=== PATIENT | male | born 1995 | race American Indian/Alaskan Native ===

== ENCOUNTER 2020-06-27 18:51 | Emergency (ER) | payer SELFPAY ==
[2020-06-27] MEDS ORDERED: SODIUM CHLORIDE 0.9% 1000 ML 1,000 ML ONE (19:18)
[2020-06-27] MEDS ORDERED: SODIUM CHLORIDE 0.9% 1000 ML 1,000 ML IV ONE (19:20)
[2020-06-27 19:45] LABS: Bilirubin,Urine NEG (Negative); Blood,Urine NEG (Negative); Color,Urine Amber (Yellow); Mucus,Urine 3+ /HPF
[2020-06-27 19:50] LABS: Amphetamine Screen,Urine PRESUMPTIVE NEGATIVE; Benzodiazepines Screen,Urine PRESUMPTIVE NEGATIVE; Cannabinoid Screen,Urine PRESUMPTIVE POSITIVE; Cocaine Screen,Urine PRESUMPTIVE NEGATIVE; Methadone Screen,Urine PRESUMPTIVE NEGATIVE; Opiate Screen,Urine PRESUMPTIVE NEGATIVE
[2020-06-27 19:54] LABS: Protein,Urine >500 mg/dL (Negative)
[2020-06-27 20:01] LABS: Basophils % (Auto) 0.3 % (0.0-1.8); Eosinophils # (Auto) 0.1 K/mm3 (0.0-0.4); Eosinophils % (Auto) 0.6 % (0.0-4.3); Hematocrit 45.9 % (35.5-45.6); Hemoglobin 15.7 gm/dl (11.8-15.2); Lymphocytes # (Auto) 0.9 K/mm3 (1.2-5.4); Lymphocytes % (Auto) 9.5 % (13.4-35.0); Mean Corpuscular HGB Conc 34 % (32-34); Mean Corpuscular Volume 96 fl (84-94); Monocytes # (Auto) 0.6 K/mm3 (0.0-0.8); Monocytes % (Auto) 6.8 % (0.0-7.3); Platelet Count 149 K/mm3 (140-440); Red Blood Count 4.76 M/mm3 (3.65-5.03); Red Cell Distribution Width 13.4 % (13.2-15.2)
[2020-06-27 20:13] LABS: Alanine Aminotransferase 20 units/L (7-56); Albumin 4.3 g/dL (3.9-5); BUN/Creatinine Ratio 12; Blood Urea Nitrogen 12 mg/dL (9-20); Calcium 8.9 mg/dL (8.4-10.2); Hemolysis Index 22
--- NOTE | 2020-06-27 20:29 | XRay Report ---
CHEST 1 VIEW INDICATION: Palpatations COMPARISON: None FINDINGS: SUPPORT DEVICES: None. HEART / MEDIASTINUM: No significant abnormality. LUNGS / PLEURA: No significant pulmonary or pleural abnormality. No pneumothorax. ADDITIONAL FINDINGS: IMPRESSION: 1. No acute cardiopulmonary disease Signer Name: Seth Delgado MD Signed: 06/27/2020 8:25 PM Workstation Name: [id number]
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
[2020-06-27 21:36] VITALS: BP 154/100
== END 2020-06-27 21:36 | disposition home or self-care (01) ==
LOC: ED 18:51
DX: R00.0 Tachycardia, unspecified (principal); N39.0 Urinary tract infection, site not specified; F17.200 Nicotine dependence, unspecified, uncomplicated; F12.10 Cannabis abuse, uncomplicated; F14.10 Cocaine abuse, uncomplicated
CPT/HCPCS: 36415; 71045; 80053; 80307; 81001; 83735; 84439; 84443; 85025; 87086; 93005; 96360; 99284; J7030

== ENCOUNTER 2020-07-26 11:57 | Emergency (ER) | payer SELFPAY ==
[2020-07-26 12:07] VITALS: BP 146/98
--- NOTE | 2020-07-26 13:38 | Emergency Department Report ---
ED Back Pain/Injury HPI - General Chief Complaint: Back Pain/Injury Stated Complaint: BACK PAIN/COUGH/CANT SMELL/TASTE Time Seen by Provider: 07/26/20 13:32 Source: patient Limitations: No Limitations - Related Data Previous Rx's Medication Instructions Recorded Last Taken Type Sulfamethoxazole/Trimethoprim 1 each PO BID #14 tablet 06/27/20 Unknown Rx [Bactrim DS TAB] Allergies Allergy/AdvReac Type Severity Reaction Status Date / Time amoxicillin Allergy Unknown Verified 06/27/20 19:02 ED Review of Systems ROS: Stated complaint: BACK PAIN/COUGH/CANT SMELL/TASTE Other details as noted in HPI ED Past Medical Hx - Past Medical History Previous Medical History?: No - Surgical History Past Surgical History?: No - Social History Smoking Status: Never Smoker Substance Use Type: None - Medications Home Medications: Home Medications Medication Instructions Recorded Confirmed Last Taken Type Sulfamethoxazole/Trimethoprim 1 each PO BID #14 tablet 06/27/20 Unknown Rx [Bactrim DS TAB] ED Physical Exam - General Limitations: No Limitations ED Course Vital Signs 07/26/20 12:04 Temperature 98.1 F Pulse Rate 82 Respiratory 18 Rate Blood Pressure 146/98 O2 Sat by Pulse 97 Oximetry Critical care attestation.: If time is entered above; I have spent that time in minutes in the direct care of this critically ill patient, excluding procedure time. ED Disposition Condition: Stable Referrals: PRIMARY CARE, [Primary Care Provider] - 3-5 Days
--- NOTE | 2020-07-26 13:39 | Emergency Department Report ---
Chief Complaint: Back Pain/Injury Stated Complaint: BACK PAIN/COUGH/CANT SMELL/TASTE Time Seen by Provider: 07/26/20 13:32 - HPI History of Present Illness: 25-year-old -[place] male presents to the emergency room stating he has a runny nose and would like to be tested for Covid. Patient states that he has a friend that came over and tested positive for Covid. Patient denies any shortness of breath chest pain no nausea no vomiting no sore throat no diarrhea no headache. Patient denies any past medical history takes no medications on a daily basis and has allergy to amoxicillin. - Exam Vital Signs: Vital Signs 07/26/20 12:04 Temperature 98.1 F Pulse Rate 82 Respiratory 18 Rate Blood Pressure 146/98 O2 Sat by Pulse 97 Oximetry Physical Exam: Alert and oriented x3 no acute distress nontoxic in appearance Patient has nonlabored breathing ambulatory without difficulties or distress. MSE screening note: Focused history and physical exam performed. Due to findings the following was ordered: 25-year-old -[place] male presents to the emergency room stating he has a runny nose and would like to be tested for Covid. Patient states that he has a friend that came over and tested positive for Covid. Patient denies any shortness of breath chest pain no nausea no vomiting no sore throat no diarrhea no headache. Patient denies any past medical history takes no medications on a daily basis and has allergy to amoxicillin. [place] patient that he can go to one of the community resource areas where they are providing Covid testing. ED Disposition for MSE Disposition: MED SCREENING EXAM-LEFT Is pt being admited?: No Does the pt Need Aspirin: No Condition: Stable Additional Instructions: Handout given for Covid resources. Referrals: PRIMARY CARE, [Primary Care Provider] - 3-5 Days
== END 2020-07-26 13:40 | disposition left against medical advice (07) ==
LOC: ED 11:57
DX: M54.9 Dorsalgia, unspecified (principal); Z53.21 Procedure and treatment not carried out due to patient leaving prior to being seen by health care provider

== ENCOUNTER 2020-11-10 11:32 | Emergency (ER) | payer SELFPAY ==
[2020-11-10] MEDS ORDERED: NEOMY 3.5 MG/BACIT 400 UNITS/POLY B 5000 UNITS/GM OINT PACKET TP ONE (11:45)
[2020-11-10] MEDS ORDERED: HYDROcodone/ACETAMINOPHEN 5-325 MG TAB PO ONE ×2 (11:45→13:18)
[2020-11-10] MEDS ORDERED: DIPHtheria,PERTUSSIS(ACELL),TETANUS VACCINE/PF 0.5 ML VIAL IM ONE (11:45)
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
[2020-11-10 13:53] VITALS: BP 164/107
== END 2020-11-10 14:00 | disposition home or self-care (01) ==
LOC: ED 11:32
DX: S43.52XA Sprain of left acromioclavicular joint, initial encounter (principal); T07.XXXA Unspecified multiple injuries, initial encounter; Z88.0 Allergy status to penicillin; Z79.899 Other long term (current) drug therapy; X58.XXXA Exposure to other specified factors, initial encounter; Y93.89 Activity, other specified; Y92.89 Other specified places as the place of occurrence of the external cause; Y99.8 Other external cause status
CPT/HCPCS: 29105; 73030; 90471; 90715; 99283; A6250

== ENCOUNTER 2020-12-22 02:24 | Emergency (ER) | payer SELFPAY ==
[2020-12-22] MEDS ORDERED: LIDOCAINE (1%) 10 MG/1 ML VIAL 20 ML MDV INFILTRATI ONE (04:43)
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
[2020-12-22 06:11] LABS: Alanine Aminotransferase 20 units/L (7-56); Albumin 4.6 g/dL (3.9-5); BUN/Creatinine Ratio 11; Blood Urea Nitrogen 9 mg/dL (9-20); Calcium 8.7 mg/dL (8.4-10.2); Hemolysis Index 9
[2020-12-22 06:21] LABS: Basophils % (Auto) 0.4 % (0.0-1.8); Eosinophils % (Auto) 0.2 % (0.0-4.3); Hematocrit 45.7 % (35.5-45.6); Hemoglobin 15.6 gm/dl (11.8-15.2); Lymphocytes # (Auto) 1.9 K/mm3 (1.2-5.4); Lymphocytes % (Auto) 25.1 % (13.4-35.0); Mean Corpuscular HGB Conc 34 % (32-34); Mean Corpuscular Volume 96 fl (84-94); Monocytes # (Auto) 0.6 K/mm3 (0.0-0.8); Monocytes % (Auto) 7.4 % (0.0-7.3); Red Blood Count 4.77 M/mm3 (3.65-5.03); Red Cell Distribution Width 13.1 % (13.2-15.2)
[2020-12-22 06:29] LABS: INR 0.96 (0.87-1.13)
[2020-12-22 06:30] LABS: Partial Thromboplastin Time 33.4 Sec. (24.2-36.6)
[2020-12-22 06:35] LABS: Platelet Count 164 K/mm3 (140-440)
[2020-12-22] MEDS ORDERED: LORazepam 2 MG/ML VIAL IV ONE (06:39)
[2020-12-22] MEDS ORDERED: THIAMINE 100 MG, FOLIC ACID 1 MG, MULTIPLE VITAMIN INJ, ADULT 10 ML in SODIUM CHLORIDE ... IV ONE (07:00)
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
[2020-12-22 08:07] LABS: Amphetamine Screen,Urine Negative; Benzodiazepines Screen,Urine Negative; Cocaine Screen,Urine Negative; Methadone Screen,Urine Negative; Opiate Screen,Urine Negative
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
[2020-12-22 08:27] LABS: Cannabinoid Screen,Urine PRESUMPTIVE POSITIVE
[2020-12-22 11:39] VITALS: BP 112/62
== END 2020-12-22 11:48 | disposition home or self-care (01) ==
LOC: ED 02:24
DX: S01.511A Laceration without foreign body of lip, initial encounter (principal); F10.920 Alcohol use, unspecified with intoxication, uncomplicated; F17.200 Nicotine dependence, unspecified, uncomplicated; Z79.899 Other long term (current) drug therapy; Z88.0 Allergy status to penicillin; Y04.8XXA Assault by other bodily force, initial encounter; Y93.89 Activity, other specified; Y92.89 Other specified places as the place of occurrence of the external cause; Y99.8 Other external cause status
CPT/HCPCS: 12011; 36415; 70450; 70486; 72125; 80053; 80307; 83690; 85025; 85610; 85730; 99284; J3411; J7030; 80320; G0480